=== PATIENT | male | born 1975 | race Caucasian/White ===

== ENCOUNTER 2018-02-22 09:13 | Outpatient (REF) | payer OTHER, SELFPAY ==
[2018-02-22 13:25] LABS: Anion Gap 7.7 mmol/L (3-11); BUN 16 mg/dL (7-18); CO2 28.3 mmol/L (21.0-32.0); CREATININE 1.11 mg/dL (0.70-1.30); Calcium 8.9 mg/dL (8.5-10.1); Chloride 101 mmol/L (98-107); Cholesterol 206 mg/dL (50-200); Glucose 92 mg/dL (70-100); HDL Cholesterol 53 mg/dL (40-60); LDL CHOLESTEROL 134 mg/dL (<100); Potassium 4.3 mmol/L (3.5-5.1); Sodium 137 mmol/L (136-145); Triglyceride 143 mg/dL (30-150)
== END 2018-02-22 09:33 ==
LOC: NCHCN 09:13
PROVIDERS: PCP Family Medicine; Visit Provider Nurse Practitioner
DX: Z00.00 Encounter for general adult medical examination without abnormal findings (principal); R03.0 Elevated blood-pressure reading, without diagnosis of hypertension
CPT/HCPCS: 80048; 80061; 83721

== ENCOUNTER 2018-02-27 16:19 | Outpatient (REF) | payer OTHER, SELFPAY ==
[2018-03-01 12:05] LABS: HIV-1/2 Ag & Ab Screen SEE COMMENTS (NEGAT)
[2018-03-01 12:25] LABS: Syphilis Serology (RPR) Negative (Negative)
== END 2018-02-27 16:39 ==
LOC: NCHCN 16:19
PROVIDERS: PCP Nurse Practitioner; Visit Provider Nurse Practitioner
DX: Z11.4 Encounter for screening for human immunodeficiency virus [HIV] (principal); Z11.3 Encounter for screening for infections with a predominantly sexual mode of transmission
CPT/HCPCS: 86701; 86702; 87389; 86592

== ENCOUNTER 2018-03-11 10:47 | Outpatient (CLI) | payer OTHER, SELFPAY ==
[2018-03-14 15:19] LABS: HIV-1 RNA Quantification Undetected copies/mL (UNDECT)
== END 2018-03-11 11:07 ==
PROVIDERS: PCP Nurse Practitioner; Visit Provider Nurse Practitioner
DX: Z11.4 Encounter for screening for human immunodeficiency virus [HIV] (principal)
CPT/HCPCS: 36415; 87536

== ENCOUNTER 2018-03-14 11:44 | Outpatient (CLI) | payer OTHER, SELFPAY | END 2018-03-14 12:04 | PROVIDERS: PCP Nurse Practitioner; Visit Provider Nurse Practitioner | DX: R69 Illness, unspecified (principal) | CPT/HCPCS: 36415 ==

== ENCOUNTER 2018-03-15 00:33 | Outpatient (CLI) | payer OTHER, SELFPAY ==
--- NOTE | 2018-03-15 09:10 | DI.US_ITS ---
SYMPTOM/DIAGNOSIS: FAMILY H/O RENAL DISEASE Z84.1 RENAL ULTRASOUND: Routine examination was performed. The right kidney measures 11.8 cm. long. No renal mass, calculus or obstruction is identified. There is normal blood flow to the right kidney. The left kidney measures 11.3 cm. long. No renal mass, calculus or obstruction is identified. The prevoid urinary bladder volume is 27 cc's. Postvoid urinary bladder volume was 19 cc's. No intraluminal masses were seen. The ureteral jets were not visualized during the examination. The bladder was not well filled. Prostatic volume is 29 cc's. IMPRESSION: No evidence of hydronephrosis, renal mass or nephrolithiasis.
== END 2018-03-15 00:53 ==
PROVIDERS: PCP Nurse Practitioner; Visit Provider Nurse Practitioner
DX: Z84.1 Family history of disorders of kidney and ureter (principal)
CPT/HCPCS: 76770

== ENCOUNTER 2018-03-15 02:11 | Outpatient (CLI) | payer OTHER, SELFPAY ==
[2018-03-15] MEDS: Inhaler, Assist Device 1 EACH MC (10:12)
[2018-03-15] MEDS: Albuterol HFA 18 GM 200 PUFF INH IH (10:12)
--- NOTE | 2018-03-15 17:50 | PFT_ITS ---
DATE OF SURGERY: March 15, 2018 REQUESTING PROVIDER: Carla Bond N.P. Spirometry shows mild obstructive airways disease with some but not significant bronchodilator response. Lung volumes show no evidence of restriction. There is moderate hyperinflation and air trapping. Diffusion capacity elevated. Airways resistance elevated. IMPRESSION: Mild obstructive airways disease with some but not significant bronchodilator response. This is associated with hyperinflation and air trapping and elevated diffusion capacity. This constellation of findings can be seen in asthma. Clinical correlation recommended.
== END 2018-03-15 02:31 ==
PROVIDERS: PCP Nurse Practitioner; Visit Provider Nurse Practitioner
DX: J45.40 Moderate persistent asthma, uncomplicated (principal)
CPT/HCPCS: 94060; 94150; 94726; 94729

== ENCOUNTER 2019-12-14 10:06 | Emergency (ER) | payer OTHER, SELFPAY ==
[2019-12-14] VITALS (33 sets, daily range): BP systolic 106–157; BP diastolic 64–85; PULSE 58–75; RESP 11–19; TEMP 36.2; O2SAT 97–100
--- NOTE | 2019-12-14 10:02 | ED.GENADUL_ITS ---
Discharge Plan Disposition Patient Disposition: HOME Condition: Good Discharge Details Chief Complaint: Dizzy/Sync Clinical Impression: Back pain, Syncope Primary Care Provider: Taty Hunt ED Provider: Ayana Marsh Home Meds and New Rx's Prescriptions: New diazepam [Valium] 5 mg tablet 5 mg PO TID PRN (Reason: muscle spasm) Qty: 7 RF: 0 Continued albuterol sulfate 90 mcg/actuation HFA aerosol inhaler 2 puff INHALATION DAILY PRNRF: 0 budesonide-formoterol [Symbicort] 160-4.5 mcg/actuation HFA aerosol inhaler 1 puff INHALATION BID RF: 0 budesonide-formoterol 160-4.5 mcg/actuation HFA aerosol inhaler 1 puff INHALATION DAILY RF: 0 Discharge Instructions Instructions: Syncope (ED), Back Pain (ED) Additional Instructions: Encourage water intake. Encourage gentle stretching. Tylenol and/or ibuprofen as needed for discomfort. You may take the Valium as prescribed for any recurrence of your muscle spasm. Please do not drive while taking this medication. Try to avoid activities with this increase discomfort. If you develop fever/chills, chest pain, shortness of breath, sensation changes, weakness, change in bowel or bladder functions or other new/worsening symptom please seek care urgently once again. Otherwise, please follow-up with primary care in the next 1 to 2 weeks for reevaluation. Referrals: Taty Hunt [Primary Care Provider] - Discharge Data Discharge Date/Time-TO BE ENTERED AT DEPARTURE: 12/14/19 14:29 Medical Decision Making Is a pleasant 44-year-old gentleman presenting today with chief complaint of back pain and syncopal episode. He reports that yesterday he was walking his dog when the dog suddenly pulled him and he had a sudden onset of right-sided lower back pain. He reports that he has had discomfort like this historically. Has found immobilization can exacerbate this and decided to go for a hike. States that after the hike, the pain persisted. However, he states that he was able to cope with the pain yesterday. Upon awakening today, he noted his pain to be much more severe and difficulty with ambulation. Reports that he went downstairs, which she reports to quite some time. Reports after coming down stairs he became diaphoretic, hot, nauseated. States that he sat down shortly after suffered a syncopal episode. Reports that this was witnessed by his son. He did not fall. Denies any other injury today. Son called 911 and EMS brought him in for evaluation. They did give him fentanyl prior to arrival to help with his discomfort. He reports that his pain is much improved at this time. He denies any incontinence or change in bowel/bladder habits. No sensory changes. Is not noted any areas of weakness. Denies any chest pain or shortness of breath. He denies any radiation of his pain. On exam, patient appears anxious and uncomfortable. Shortly after going to the room to evaluate patient, he began endorsing recurrence of his dizziness. He is not having any shortness of breath. Vital signs are stable. Glucose is 121. He has 2+ distal pulses in all extremities. Abdomen is benign. He has no CVA tenderness. No neck pain, good range of motion. Pain in his back is elicited palpation over the right SI joint. He has no midline tenderness. No step-off or palpable deformity. No saddle paresthesias. Very limited range of motion of his back secondary to pain. 5 out of 5 strength in lower extremities. Patient is unable to straight leg raise at this time secondary to pain. At this time, I do not see any evidence of cauda equina. I am concerned that he continues to have this dizziness despite ablation of what sounds to be a syncopal episode. Patient symptoms did improve after laying flat. EKG was obtained and reviewed by Dr. Mendoza. Please see his interpretation. No acute ischemic changes are noted. No arrhythmias. Labs reviewed. No significant abnormalities were noted. Patient is receiving hydration. Received Toradol and Valium. CT of patient's lumbar spine was reviewed by radiologist. X-ray of the patient's chest was reviewed by radiology. FINDINGS: Vertebrae: 5 non-rib bearing lumbar segments in near anatomical alignment. No acute fracture. No osteophytosis. Facets are without acute process. grade 1 spondylolisthesis of L5 with respect to S1 secondary to chronic bilateral pars fractures. Discs/Spinal canal/Neural foramina: Disc space height is well-maintained Annular disc bulge and/or disc herniation L4-L5. Soft tissues: Unremarkable. IMPRESSION: 1. No acute fracture. 2. Grade 1 spondylolisthesis of L5 with respect to S1 secondary to chronic bilateral pars fractures. 3. Annular disc bulge and/or disc herniation L4-L5. FINDINGS: Lungs: Unremarkable. No consolidation. Pleural space: Unremarkable. No pleural effusion. No pneumothorax. Heart/Mediastinum: Unremarkable. No cardiomegaly. Bones/joints: Unremarkable. IMPRESSION: No acute findings. Repeat troponin remains less than 0.05. Repeat EKG also reviewed by Dr. Mendoza with no acute changes. Discussed these findings with the patient. He reports that his pain is all gone at this point. He is able to straight leg raise bilaterally without any discomfort. He does state that the pain has migrated some to be more towards midline but this is not reproducible on exam. He continues to have no saddle paresthesias. Patient did have a residual urine of 300 after 800 cc out. Patient was sitting in bed when he did attempt to urinate. He was unable to urinate any further. I therefore did consider cauda equina once again. Rectal exam was performed however and was found to be normal with no loss of rectal tone. His history is not consistent with cauda equina. No believe this was likely associated with positioning. I will continue the patient on p.o. Valium as needed if he has return of his muscle spasm. We will continue to alternate Tylenol and/or ibuprofen. We did discuss continuing topical options to help with discomfort. Discussed that the syncopal episode was likely vasovagal in nature based on his descriptive history. This is likely associated with the severity of the pain he is experiencing in his back. Patient was given strict return precautions. He will follow-up with primary care provider this week. All his questions and concerns were addressed and he is in agreement with this plan. [facility] General Mode of arrival: EMS . Date/Time Provider Initiated Documentation: 12/14/19 10:10 . Limitations to Documentation: no limitations . Information obtained by: patient, EMS and RN notes reviewed . History of Present Illness 44 year old M presents to the emergency department with the chief complaint of Back pain and syncopal episode, described as mild, with intensity rated at 2. Quality is described as aching, and is localized to the back. Patient reports no radiation. Patient started experiencing this day(s) (1) and it has been constant. Medication improves symptom(s), (Given fentanyl prior to arrival) Movement worsens symptoms . Patient notes diaphoresis, nausea/vomiting (Nauseated prior to syncopal episode) and syncope; denies chest pain, cough, fever/chills, headaches, loss of appetite, shortness of breath and weakness. Patient did receive the following treatments prior to arrival, other (Fentanyl given by EMS) Related Data Home Medications Medication Instructions Recorded Confirmed albuterol sulfate 2 puff INHALATION DAILY PRN 12/14/19 12/14/19 budesonide-formoterol 1 puff INHALATION DAILY 12/14/19 12/14/19 budesonide-formoterol [Symbicort] 1 puff INHALATION BID 12/14/19 12/14/19 diazepam [Valium] 5 mg PO TID PRN #7 tab 12/14/19 Previous Rx's Medication Instructions Recorded diazepam [Valium] 5 mg PO TID PRN #7 tab 12/14/19 Allergies Allergy/AdvReac Type Severity Reaction Status Date / Time No Known Allergies Allergy Unverified 12/14/19 10:20 Review of Systems Constitutional Constitutional: Reports as per HPI, Denies chills, Denies fatigue, Denies fever(s), Denies frequent falls and Denies headache(s) Eyes Eyes: Denies change in vision ENT Ears, Nose, Mouth, and Throat: Denies headache(s) Cardiovascular Cardiovascular: Denies chest pain, Denies dyspnea and Denies dyspnea on exertion Respiratory Respiratory: Denies cough, Denies dyspnea and Denies dyspnea on exertion Gastrointestinal Gastrointestinal: Denies abdominal pain, Denies change in bowel habits and Denies fecal incontinence Genitourinary Genitourinary: Reports as per HPI, Denies urinary hesitancy and Denies urinary incontinence Musculoskeletal Musculoskeletal: Reports as per HPI, Reports back pain, Denies muscle weakness, Denies numbness, Denies radiating pain into limb, Reports stiffness and Denies tingling Integumentary/Breasts Skin/Breast: Reports as per HPI and Denies rash Neurologic Neurologic: Reports as per HPI, Denies frequent falls, Denies headache(s), Denies localized weakness, Denies numbness, Denies radicular pain, Denies sensory deficit, Denies tingling and Denies paresthesias Endocrine Endocrine: Denies fatigue [facility] Social History Smoking/Tobacco Use Status: Former Tobacco Use Alcohol Intake: current Alcohol Intake frequency: 0-2 drinks per day Drug use: Never Substance use type: does not use Do you feel safe at home: Yes Exam Const General: cooperative, healthy appearing, uncomfortable, no acute distress, well developed, well groomed and anxious Nutritional Appearance: average body habitus and well nourished Orientation: alert and awake Eyes General: appearance normal, both eyes and all related structures Neck Neck: normal visual inspection, full ROM, no lymphadenopathy and no meningeal signs Resp Effort & Inspection: normal respiratory effort and able to speak in complete sentences Auscultation: clear to auscultation bilaterally, no rales, no rhonchi and no wheezes Cardio Rate: regular rate Rhythm: regular rhythm Heart Sounds: S1 normal and S2 normal GI Inspection: normal to inspection Palpation: soft, no hepatosplenomegaly, no pulsatile masses, not rigid and nontender Percussion: normal to percussion Auscultation: normal bowel sounds Back/Spine/Pelvis Back: no CVA tenderness Cervical Spine: normal cervical lordosis, cervical ROM normal, No cervical s marge tenderness and No step off deformity Thoracic/Lumbar Spine: thoracic and lumbar spine normal to inspection, No thoraco-lumbar ROM normal (patient unable to range at this time secondeary to pain), No straight leg raise negative bilaterally (unable to complete), No paraspinal tenderness, No thoracic spinal tenderness and No lumbar spinal tenderness Pelvis: no pain with anterior-posterior compression and no pain with lateral compression Sacroiliac joints: on the right tender to palpation and on the left nontender Sacrum: no tenderness Coccyx: no tenderness Skin General skin exam: no rashes or lesions noted Neuro General: patient alert and patient awake Cognition: normal cognition Speech: speech normal Motor: muscle tone normal throughout, strength 5/5 throughout, no movement abnormalities noted and no fasciculations Sensory Exam: no sensory deficits noted (no saddle paresthesias) DTR's: Rt Patellar: 2+, Lt Patellar: 2+, Rt Ankle: 2+ and Lt Ankle: 2+ Extrem General: normal to inspection, full ROM, capillary refill normal, no joint enlargement, no pedal edema, no calf tenderness and other (2+ distal pulses BLE) Psych Appearance: grossly normal and well kempt Mental Status: mental status grossly normal Speech and Movement: speech and movement normal
--- NOTE | 2019-12-14 10:14 | RT.EKG_ITS ---
APPROVED REPORT Exam: Resting ECG Patient Location: E HR:59 bpm ECG Measurements Heart Rate 59 AXIS NH 144 P 11 QRSd 94 QRS 45 QT 415 T 29 QTc 413 <Conclusion> Sinus bradycardia...rate 60 inferior early repol pattern.
[2019-12-14] MEDS: Ondansetron 4 MG/2 ML VIAL IVP (10:31)
[2019-12-14 10:32] LABS: Abs Immature Grans 0.01 10^3/uL (0.0-0.06); Absolute Basophil Count 0.04 10^3/uL (0.0-0.2); Absolute Eosinophil Count 0.33 10^3/uL (0.0-0.7); Absolute Lymphocyte Count 1.68 10^3/uL (1.2-3.4); Absolute Neutrophil Count 2.35 10^3/uL (1.2-6.7); Basophils % 0.8; Eosinophils % 6.7; HCT 41.7 % (40.0-50.0); HGB 14.7 g/dL (13.5-17.5); Immature Grans % 0.2; Lymphocytes % 34.2; MCH 30.8 pg (27.0-33.0); MCHC 35.3 % (32.0-36.0); MCV 87.2 fL (80-95); MPV 8.8 fL (8.0-11.0); Monocytes % 10.2; Neutrophils % 47.9; Platelet Count 199 10^3/uL (130-400); RBC 4.78 10^6/uL (4.36-5.78); RDW 11.7 % (11.8-14.1); RDW-SD 37.7 fL; WBC 4.91 10^3/uL (4.4-10.8)
[2019-12-14] MEDS: Lactated Ringers 1,000 ML 1000 ML IV (10:36)
[2019-12-14 10:50] LABS: ALT 37 U/L (16-63); AST 19 U/L (15-37); Albumin 3.6 g/dL (3.4-5.0); Alkaline Phosphatase 59 U/L (46-116); Anion Gap 7.7 mmol/L (3-11); BUN 16 mg/dL (7-18); Bilirubin, Total 0.5 mg/dL (0.2-1.0); CO2 26.3 mmol/L (21.0-32.0); CREATININE 1.19 mg/dL (0.70-1.30); Calcium 8.4 mg/dL (8.5-10.1); Chloride 100 mmol/L (98-107); Glucose 125 mg/dL (74-106); Magnesium 1.6 mg/dL (1.8-2.4); Potassium 4.3 mmol/L (3.5-5.1); Sodium 134 mmol/L (136-145); Total Protein 6.5 g/dL (6.4-8.2)
--- NOTE | 2019-12-14 10:50 | DI.CT_ITS ---
EXAM: CT LUMBAR SPINE WO CLINICAL HISTORY: severe right sided pain after being pulled by dog TECHNIQUE: COMPARISON: No exams were available for comparison FINDINGS: CT examination lumbosacral spine was performed utilizing multi slice acquisition and multiplanar neo nstruction without contrast administration. Visualized portions of the kidneys and adrenals appear n ormal. Abdominal aorta is of normal diameter. No retroperitoneal mass or adenopathy. There is a bilateral L5 spondylolysis, presumably chronic, with slight Anterolisthesis of L5 on S1. T here may be slight narrowing of the neural foramina bilaterally at L 5 S1 associated with this deform ity. There is mild disc bulge at L5-S1. There is a moderate sized predominantly central disc herniation at L4-5. No other significant findin gs at L4-5. No other disc herniation identified in lumbar region. No other bony abnormality seen. Central spinal canal and neural foramina appear intact. IMPRESSION: Bilateral L5 spondylolysis with slight anterior spondylolisthesis of L5 on S1. Moderate-sized L4-5 central disc herniation. Please correlate with patient's neurologic symptoms.
--- NOTE | 2019-12-14 10:52 | DI.RAD_ITS ---
EXAM: XR CHEST 2V PA LATERAL CLINICAL HISTORY: syncope TECHNIQUE: 2D digital imaging was performed. COMPARISON: No exams were available for comparison FINDINGS: The heart is not enlarged. The lungs are clear and well expanded. No pleural effusion seen. Mediastin al contours appear intact. IMPRESSION: Normal chest
[2019-12-14 10:57] LABS: Troponin I < 0.05 ng/mL (<0.06)
--- NOTE | 2019-12-14 11:07 | DI.VRAD_ITS ---
PROCEDURE INFORMATION: Exam: CT Lumbar Spine Without Contrast Exam date and time: 12/14/2019 10:44 AM Age: 44 years old Clinical indication: Patient HX: Severe low back pain, puled by dog. TECHNIQUE: Imaging protocol: Computed tomography images of the lumbar spine without contrast. Radiation optimization: All CT scans at this facility use at least one of these dose optimization techniques: automated exposure control; mA and/or kV adjustment per patient size (includes targeted exams where dose is matched to clinical indication); or iterative reconstruction. COMPARISON: No relevant prior studies available. FINDINGS: Vertebrae: 5 non-rib bearing lumbar segments in near anatomical alignment. No acute fracture. No osteophytosis. Facets are without acute process. grade 1 spondylolisthesis of L5 with respect to S1 secondary to chronic bilateral pars fractures. Discs/Spinal canal/Neural foramina: Disc space height is well-maintained Annular disc bulge and/or disc herniation L4-L5. Soft tissues: Unremarkable. IMPRESSION: 1. No acute fracture. 2. Grade 1 spondylolisthesis of L5 with respect to S1 secondary to chronic bilateral pars fractures. 3. Annular disc bulge and/or disc herniation L4-L5. Dictated and Authenticated by: Andi Goins MD. Ordering:LUIS Piña MD
--- NOTE | 2019-12-14 11:08 | DI.VRAD_ITS ---
PROCEDURE INFORMATION: Exam: XR Chest, 2 Views Exam date and time: 12/14/2019 10:50 AM Age: 44 years old Clinical indication: Other: Syncope; Patient HX: Patient pulled by dog, severe low back pain; Additional info: Patient unable to move for 2 view chest x-ray, best images obtained, cross table lateral done. TECHNIQUE: Imaging protocol: XR of the chest Views: 2 views. COMPARISON: No relevant prior studies available. FINDINGS: Lungs: Unremarkable. No consolidation. Pleural space: Unremarkable. No pleural effusion. No pneumothorax. Heart/Mediastinum: Unremarkable. No cardiomegaly. Bones/joints: Unremarkable. IMPRESSION: No acute findings. Dictated and Authenticated by: Andi Goins MD. Ordering:LUIS Piña MD
[2019-12-14] MEDS: Ketorolac 30 MG/ML VIAL IVP (12:18)
[2019-12-14] MEDS: diazePAM 10 MG/2 ML SYR 5 MG IVP (12:26)
[2019-12-14] MEDS: Lidocaine 5% Patch 1 PATCH TP (12:27)
[2019-12-14] MEDS: Normal Saline Flush 10 ML SYR IVP (12:28)
--- NOTE | 2019-12-14 13:15 | RT.EKG_ITS ---
APPROVED REPORT Exam: Resting ECG Patient Location: E HR:69 bpm ECG Measurements Heart Rate 69 AXIS MA 155 P 45 QRSd 90 QRS 52 QT 365 T 44 QTc 390 <Conclusion> Sinus rhythm..rate 69, qrs narrow, j pt elevation present
[2019-12-14 13:49] LABS: Troponin I < 0.05 ng/mL (<0.06)
[2019-12-14 13:51] LABS: Bilirubin Negative (Negative); Blood Negative (Negative); Clarity Clear (Clear); Glucose Negative (Negative); Ketones Negative (Negative); Leukocyte Esterase Negative (Negative); Nitrite Negative (Negative); Specific Gravity 1.015 (1.005-1.025); Urobilinogen 0.2 EU/dL (Up TO 0.2)
== END 2019-12-14 14:29 | disposition home or self-care (01) ==
PROVIDERS: Emergency Provider Physician Assistant; PCP Nurse Practitioner Family
DX: M54.5 Low back pain (principal); R55 Syncope and collapse; X50.9XXA Other and unspecified overexertion or strenuous movements or postures, initial encounter; Y93.K1 Activity, walking an animal
CPT/HCPCS: 36415; 36416; 80053; 82962; 93005; 96361; 96374; 96375; 99285; 71046; 72131; 81003; 83735; 84484; 85025; 93010; 99284; J1885; J2405; J3360

== ENCOUNTER 2022-09-11 19:41 | Outpatient (REF) | payer BC, SELFPAY ==
[2022-09-12 10:57] LABS: Campylobacter PCR Negative (Negative); Salmonella PCR Negative (Negative); Shiga Toxin PCR Negative (Negative); Shigella/Enteroinvasive Ecoli Negative (Negative)
== END 2022-09-11 19:42 | disposition home or self-care (01) ==
LOC: NCHCN 19:41
PROVIDERS: PCP Nurse Practitioner Family; Visit Provider Internal Medicine
DX: R19.7 Diarrhea, unspecified (principal)
CPT/HCPCS: 87329; 87505

== ENCOUNTER 2023-06-28 14:56 | Outpatient (REF) | payer BC, SELFPAY ==
[2023-06-28 21:37] LABS: HCT 44.3 % (40.0-50.0); HGB 15.7 g/dL (13.5-17.5); MCH 30.9 pg (27.0-33.0); MCHC 35.4 % (32.0-36.0); MCV 87 fL (80-95); MPV 10.1 fL (8.0-11.0); Platelet Count 242 10^3/uL (130-400); RBC 5.08 10^6/uL (4.36-5.78); RDW 11.9 % (11.8-14.1); RDW-SD 38.5 fL; WBC 6.26 10^3/uL (4.4-10.8)
[2023-06-28 21:51] LABS: ALT 52 U/L (16-63); AST 23 U/L (15-37); Albumin 4.4 g/dL (3.4-5.0); Alkaline Phosphatase 85 U/L (46-116); BUN 12 mg/dL (7-18); Bilirubin, Total 0.7 mg/dL (0.2-1.0); CREATININE 1.1 mg/dL (0.70-1.30); Calcium 9.8 mg/dL (8.5-10.1); Calculated LDL 167 mg/dL (<100); Chloride 100 mmol/L (98-107); Cholesterol 258 mg/dL (<200); Estimated GFR 84.37 (mL/min/1.73m2); Glucose 91 mg/dL (74-106); HDL Cholesterol 46 mg/dL (40-60); Potassium 4.3 mmol/L (3.5-5.1); Sodium 139 mmol/L (136-145); Total Protein 7.6 g/dL (6.4-8.2); Triglyceride 228 mg/dL (<150)
== END 2023-06-28 14:57 | disposition home or self-care (01) ==
LOC: NCHCN 14:56
PROVIDERS: PCP Nurse Practitioner Family; Visit Provider Nurse Practitioner Family
DX: Z00.00 Encounter for general adult medical examination without abnormal findings (principal)
CPT/HCPCS: 80053; 80061; 85027

== ENCOUNTER 2023-11-05 10:21 | Day surgery (SDC) | payer BC, SELFPAY ==
--- NOTE | 2023-11-04 19:22 | W.PM.DSUDISC ---
Date of service: 11/05/23 Time of Service: 12:36 Discharge Plan Disposition Patient Disposition: Home Condition: Good Discharge Details Reason For Visit: screening colonoscopy Attending Provider: Kj Gaspar Primary Care Provider: Taty Hunt Home Meds and New Rx's Prescriptions: Continued levalbuterol tartrate [Xopenex HFA] 45 mcg/actuation HFA aerosol inhaler 2 inh inhalation Q6H PRN fluticasone propionate 110 mcg/actuation HFA aerosol inhaler 1 puff inhalation BID budesonide-formoterol [Symbicort] 160-4.5 mcg/actuation HFA aerosol inhaler 1 puff INHALATION BID Discontinued bisacodyl [Dulcolax (bisacodyl)] 5 mg tablet,delayed release (DR/EC) 5 mg PO ONCE Qty: 4 0RF Rx Instructions: Take per colonoscopy instructions provided by ordering providers office polyethylene glycol 3350 17 gram/dose powder 17 g PO ONCE Qty: 238 0RF Rx Instructions: Take per colonoscopy instructions provided by ordering providers office Discharge Instructions Instructions: Colon polyps Additional Instructions: Nicola, we are able to complete your colonoscopy today without any difficulty. Your prep was excellent. I could see everything fine. I did find and remove 3 small polyps from your rectum. These polyps will be sent off for testing by the pathologist, and once I know the nature of them, the office will be in touch regarding the timing of your next colonoscopy. If you have any questions in the meantime, please do not hesitate to ask. 1. If tolerated, consume a soft, low fiber diet for 1-2 days. 2[address] Do not drive, drink alcohol, operate machinery, make critical decisions, or do activities that require coordination or balance for 24 hours. 3. Because air was put into your colon during the procedure, expelling air from your rectum (passing gas or farting) is normal. 4. You may not have a bowel movement for 1-3 days because of the colonoscopy prep. This is normal. 5. Go directly to the emergency room if you notice any of the following: Develop chills (warm to touch), or if you have a thermometer and your temperature is above 101 Difficulty breathing or difficultly swallowing Persistent vomiting Severe abdominal pain, other than gas cramps Severe chest pain Black, tarry stools Any bleeding ? exceeding one tablespoon 6. Call your physician if the site where your intravenous was started becomes red, swollen, painful, and warm to touch. 7. Your physician has reviewed your pre-procedure medications. Please continue to take those medications as previously ordered. You will be given specific information/education regarding any changes to your medications before leaving. Activity:: Activity as Tolerated Diet:: As Tolerated Discharge Orders Discharge Orders: Discharge Order (Routine); Ordered 11/04/23 Ordered By: Kj Gaspar DS: Diagnosis Discharge Diagnosis (1) Encounter for screening colonoscopy: Status: Acute Asessment and Plan: Follow-up on polypectomy results
--- NOTE | 2023-11-04 19:23 | W.COLOREPORT ---
Date of service: 11/05/23 Time of Service: 12:37 Colonoscopy Report Date of procedure: 11/05/23 Pre-op diagnosis general: screening colonoscopy Post-op diagnosis procedure note: other (Rectal polyps) Procedure: colonoscopy with polypectomy Surgeon: Kj Gaspar Anesthesia Type: General:No Airway Estimated blood loss (mL): 5 Pathology: other (0.25 cm rectal polyps x 3) Complications: None Disposition: same day Indications: Nicola is a 48 year old man who needs his first screening colonoscopy Prep: Miralax/Dulcolax Procedure Start Time: 12:14 Procedure End Time: 12:29 Retraction Time: 7 Findings: 0.25 cm rectal polyps x 3 Procedure Description: After the induction of anesthesia, and with the patient in left lateral decubitus position, I began by performing an external anorectal exam.? Perineum and skin were normal, as was the anal verge.? There was no evidence of external hemorrhoids.? Next, I performed a digital rectal exam.? I did not appreciate any abnormal findings.? Next, I advanced a colonoscope into the rectal vault.? I performed retroflexion.? This was normal.? Using insufflation, I then advanced the colonoscope beyond the rectal folds and into the sigmoid colon before advancing towards the cecum.? The scope was noted to be in the cecum by identification of the ileocecal valve and appendiceal orifice.? I then began withdrawing the colonoscope using repeated irrigation as necessary for full evaluation of the colonic mucosa. ?Once the scope was withdrawn to the level of the rectum, great care was taken to examine portions of the rectal folds. In the midportion of the rectum were 3 polyps. There were just a few centimeters away from 1 another. Each was less than 0.25 centimeters. Each was removed with cold forceps polypectomy without any issues. Specimens were sent as 1. finally, the scope was withdrawn and the patient was brought to the same-day surgery recovery unit as the anesthetic wore off. ?The findings and instructions were shared with the patient prior to discharge. [place] Bowel Prep [place] Bowel Prep Right Colon: 3 Left Colon: 3 Transverse Colon: 3 Total Score: 9
[2023-11-05 10:40] VITALS: BP 121/91; PULSE 76; RESP 18; TEMP 36.5; O2SAT 97
[2023-11-05] MEDS: Lactated Ringers 1,000 ML 80 ML IV (11:45)
--- NOTE | 2023-11-05 11:54 | ANES.PREOP_ITS ---
General Info Date of Service Date Performed: 11/05/23 Height: 5 ft 11 in Weight: 97.522 kg Body Mass Index (BMI): 29.9 Surgical Procedure: Operation Date: 11/05/23 12:50 Proposed Procedure Side Surgeon p Corona Gaspar MD Meds Allergies and Home Medications Allergies Allergy/AdvReac Type Severity Reaction Status Date / Time No Known Allergies Allergy Verified 11/05/23 11:19 Home Medication Medication Instructions Recorded budesonide-formoterol HFA 160 1 puff inhalation BID 12/14/19 mcg-4.5 mcg/actuation aerosol inhaler (Symbicort) levalbuterol tartrate 45 2 inh inhalation Q6H PRN 04/05/22 mcg/actuation aerosol inhaler (Xopenex HFA) fluticasone propionate 110 1 puff inhalation BID 08/16/23 mcg/actuation HFA aerosol inhaler Current Visit Medications: Current Medications Generic Name Dose Route Start Last Admin Trade Name Freq PRN Reason Stop Dose Admin Hyoscyamine Sulfate 0.125 mg 11/04/23 19:25 Hyoscyamine 0.125 Mg Sl/Oral/Chew SL 12/04/23 19:24 DIRECTED PRN Ringer's Solution 1,000 mls @ 80 mls/hr 11/05/23 06:00 11/05/23 11:45 IV 12/02/23 23:59 80 mls/hr INFUSION ESTHER Administration IV Miscellaneous Supplies 1 each 11/05/23 06:00 Iv Access IV 12/02/23 23:59 DIRECTED ESTHER Ondansetron HCl 4 mg 11/04/23 19:25 Ondansetron 4 Mg/2 Ml Vial IVP 12/04/23 19:24 Q4H PRN PRN Nausea / Vomiting Sodium Chloride 0 ml 11/05/23 06:00 Normal Saline Flush 10 Ml Syr IV 12/02/23 23:59 PRN PRN Sodium Chloride 0 ml 11/05/23 06:00 Normal Saline 10 Ml Vial IJ 12/02/23 23:59 DIRECTED PRN Sterile Water 0 ml 11/05/23 06:00 Water,Injection,Sterile 10 Ml Vial IJ 12/02/23 23:59 DIRECTED PRN PFSH Active Problems Active Problems: Problem Status Onset Code Encounter for screening colonoscopy Z12.11 Elevated blood pressure reading in office without diagnosis of hypertension R03.0 Hyperlipidemia E78.5 Moderate persistent asthma J45.40 Medical History Medical History Herpes zoster Family history of neurological disorder Surgical History Surgical History [place] teeth extracted no anesthesia Tobacco Smoking/Tobacco Use Status: Former Tobacco Use Alcohol Alcohol Intake: current Alcohol intake frequency: 0-2 drinks per day Alcohol type: beer Substance Use Substance use: Rarely Substance use type: marijuana Vital Signs and Lab Results Vital Signs Most Recent Vital Signs in EMR: Most Recent Vital Signs Temp Pulse Resp BP Pulse Ox 36.5 C 76 18 121/91 H 97 11/05/23 10:40 11/05/23 10:40 11/05/23 10:40 11/05/23 10:40 11/05/23 10:40 Lab Results Blood Type / Crossmatch: No Data to Display Complete Blood Count: No Data to Display Complete Metabolic Panel: No Data to Display Liver Function Panel: No Data to Display Coagulation Panel: No Data to Display Cardiac Panel: No Data to Display Arterial Blood Gas: No Data to Display Venous Blood Gas: No Data to Display Pancreas Panel: No Data to Display Thyroid Panel: No Data to Display Infectious Disease: No Data to Display Blood Cultures: No Data to Display Toxicology Panel: No Data to Display Anesthesia Assessment and Plan Anesthesia History Personal History: No History of General Anesthesia Family History: No Family History of Anesthesia Complications Exercise Tolerance Exercise Tolerance: Metabolic Equivalents>4 Pertinent Negatives Pertinent Negatives: No Symptoms of GERD, No Major Cardiovascular Symptoms or Complaints, No Major Pulmonary Symptoms or Complaints and No History of CVA/TIA Cardiac & Pulmonary Exam Cardiac Exam: Normal S1/S2 Heart Sounds Pulmonary Exam: Clear Bilateral Breath Sounds Implantable Cardiac Device Does patient have a Pacemaker or an ICD?: No Airway Exam Known Difficult Airway: No Mallampati Class: 2 Mouth Opening: Normal (> 3cm) Thyromental Distance: Greater than 3 cm Neck Range of Motion: Full ROM Neck Circumference: Normal Teeth Condition: Normal Dentition ASA Classification ASA Score: ASA 2 Emergency Case?: No NPO Status NPO Status: NPO Clears >2 hours, Solids >8 hours Anesthesia Plan Resuscitation Status: Full Code Anesthesia Technique: General Anesthesia Airway Planned: Natural Airway Monitors Used: Standard Monitors
[2023-11-05 11:59] VITALS: BMI 29.9
--- NOTE | 2023-11-05 12:16 | BOWEL_PTH ---
PATIENT: Nicola Calle LOC: [facility] U#:[id number] AGE/SX: 48/M ROOM: RE11/05/[address]: Kj Gaspar MD : [id number] BED: DIS: 11/05/2023 SPEC #: [id number] RECD: 11/05/23 13:19 STATUS: JASPREET REQ #: [id number] NAZIA: 11/05/23 12:[address]: Kj Gaspar DEPT: Surgical Specimen RECD BY: Loni Seo ENTERED: 11/05/23 13:20 SP TYPE: Bowel OTHR DR: Taty Hunt Tissues: 1 - BIOPSY BOWEL Procedures: GROSS AND MICRO LEVEL 4 Comments: [id number]
[2023-11-05 12:38] VITALS: BP 110/61; PULSE 61; RESP 18; TEMP 36.6; O2SAT 96
--- NOTE | 2023-11-05 12:47 | W.ANESPOSTOP ---
Postoperative Evaluation Date, Time and Location Date Performed: 11/05/23 Time Performed: 12:47 Patient Location: Day Surgery Unit Vital Signs Most Recent Imported Vital Signs: Most Recent Vital Signs Temp Pulse Resp BP Pulse Ox 36.6 C 61 18 110/61 96 11/05/23 12:38 11/05/23 12:38 11/05/23 12:38 11/05/23 12:38 11/05/23 12:38 Pain Score Most Recent Pain Score: Most Recent Pain Score Pain Level 0 11/05/23 12:38 Assessment Mental Status: Awake (Alert & Oriented to Patient Baseline) Airway and Respiratory Function: Patent airway with normal (patient baseline) respiratory exam Cardiovascular Function: Hemodynamically Stable Hydration Status: Adequately Hydrated Nausea & Vomiting: No Nausea or Vomiting Pain: Pt. Denies Any Pain Peripheral Nerve Block: Patient did not receive a nerve block
[2023-11-05 12:52] VITALS: BP 122/94; PULSE 71; RESP 18; TEMP 36.6; O2SAT 98
== END 2023-11-05 13:00 | disposition home or self-care (01) ==
PROVIDERS: PCP Nurse Practitioner Family; Visit Provider Surgery
PROC: 0DJD8ZZ Inspection of Lower Intestinal Tract, Via Natural or Artificial Opening Endoscopic (ICD-10-PCS; CPT 45378; principal; 2023-11-05 12:45)
DX: Z12.11 Encounter for screening for malignant neoplasm of colon (principal); K62.1 Rectal polyp
CPT/HCPCS: 45380; 88305; J2704

== ENCOUNTER 2024-07-01 16:05 | Outpatient (REF) | payer BC, SELFPAY ==
[2024-07-01 15:02] LABS: HCT 46.5 % (40.0-50.0); HGB 15.9 g/dL (13.5-17.5); MCH 30.3 pg (27.0-33.0); MCHC 34.2 % (32.0-36.0); MCV 89 fL (80-95); MPV 9.8 fL (8.0-11.0); Platelet Count 246 10^3/uL (130-400); RBC 5.24 10^6/uL (4.36-5.78); RDW 11.8 % (11.8-14.1); RDW-SD 38.1 fL; WBC 5.45 10^3/uL (4.4-10.8)
[2024-07-01 15:39] LABS: ALT 43 U/L (16-63); AST 23 U/L (15-37); Albumin 4.3 g/dL (3.4-5.0); Alkaline Phosphatase 88 U/L (46-116); Anion Gap 8.2 mmol/L (3-11); BUN 12 mg/dL (7-18); Bilirubin, Total 0.82 mg/dL (0.2-1.0); CO2 27.8 mmol/L (21.0-32.0); CREATININE 1.2 mg/dL (0.70-1.30); Calcium 9.6 mg/dL (8.5-10.1); Calculated LDL 173 mg/dL (<100); Chloride 101 mmol/L (98-107); Cholesterol 270 mg/dL (<200); Estimated GFR 75.53 (mL/min/1.73m2); Glucose 105 mg/dL (74-106); HDL Cholesterol 44 mg/dL (40-60); Potassium 4.7 mmol/L (3.5-5.1); Sodium 137 mmol/L (136-145); Total Protein 7.5 g/dL (6.4-8.2); Triglyceride 265 mg/dL (<150)
== END 2024-07-01 16:06 | disposition home or self-care (01) ==
LOC: NCHCN 16:05
PROVIDERS: PCP Nurse Practitioner Family; Visit Provider Nurse Practitioner Family
DX: Z00.00 Encounter for general adult medical examination without abnormal findings (principal); E78.5 Hyperlipidemia, unspecified
CPT/HCPCS: 80053; 80061; 85027